=== PATIENT | female | born 1945 | race Caucasian/White ===

== ENCOUNTER → 2016-10-18 | Outpatient (REF) | LOC: ZLAB.WCH 15:40 | DX: Z02.89 Encounter for other administrative examinations (principal) ==

== ENCOUNTER → 2017-10-16 | Outpatient (REF) ==
[2017-10-16 09:36] LABS: THYROID STIMULATING HORMONE 1.99 uIU/mL (0.465-4.680)
== END ==
LOC: ZLAB.WCH 08:42
PROVIDERS: Nurse Practitioner Family
DX: Z01.89 Encounter for other specified special examinations (principal)

== ENCOUNTER → 2017-11-15 | Outpatient (REF) | LOC: ZLAB.WCH 09:34 | DX: Z01.89 Encounter for other specified special examinations (principal) ==

== ENCOUNTER → 2018-04-15 | Outpatient (REF) | LOC: ZLAB.WCH 15:53 | DX: Z01.89 Encounter for other specified special examinations (principal) ==

== ENCOUNTER → 2020-06-01 | Outpatient (REF) | LOC: ZLAB.WCH 17:20 | DX: Z01.89 Encounter for other specified special examinations (principal) ==